=== PATIENT | female | born 1985 | race Caucasian/White ===

== ENCOUNTER 2020-12-22 09:15 | Emergency (ER) | payer OTHER ==
[~2020-12-22] VITALS: Ht 152.4 cm; Wt 99.8 kg
[2020-12-22 09:20] VITALS: BP 141/66
[2020-12-22] MEDS ORDERED: HYDROCODON-ACE1 EAC7 PO (10:14)
== END 2020-12-22 10:46 | disposition home or self-care (01) ==
LOC: M.ERS 09:15
DX: S93.691A Other sprain of right foot, initial encounter (principal); E11.9 Type 2 diabetes mellitus without complications; E03.9 Hypothyroidism, unspecified; Z88.1 Allergy status to other antibiotic agents; W22.8XXA Striking against or struck by other objects, initial encounter; Y93.89 Activity, other specified; Y92.89 Other specified places as the place of occurrence of the external cause; Y99.8 Other external cause status